=== PATIENT | male | born 1980 | race African-American/Black ===

== ENCOUNTER 2017-05-19 22:02 | Emergency (ER) | payer BC ==
[~2017-05-19] VITALS: Ht 182.9 cm; Wt 81.5 kg
[~2017-05-19 22:02] MED LIST: FLEC100T2 PO; FLO0.4C PO; HYDR-565 PO; ONDA4TAB59 PO
[2017-05-19 23:21] VITALS: BP 135/95
== END 2017-05-19 23:23 | disposition home or self-care (01) ==
LOC: ER 22:03
DX: S86.011A Strain of right Achilles tendon, initial encounter (principal); I48.91 Unspecified atrial fibrillation; I10 Essential (primary) hypertension; Z87.442 Personal history of urinary calculi; Z79.899 Other long term (current) drug therapy; X58.XXXA Exposure to other specified factors, initial encounter; Y93.61 Activity, american tackle football; Y92.89 Other specified places as the place of occurrence of the external cause; Y99.8 Other external cause status
CPT/HCPCS: 99281

== ENCOUNTER 2019-02-07 03:15 | Emergency (ER) | payer BC, OTHER ==
[~2019-02-07] VITALS: Ht 185.4 cm; Wt 95.5 kg
[~2019-02-07 03:15] MED LIST changes: +HYDR-4353 PO; -HYDR-565 PO
[2019-02-07 03:49] LABS: BASOPHILS # (AUTO) 0.1 X10'3 (0-0.2); BASOPHILS % (AUTO) 0.8 % (0-1); EOSINOPHILS # (AUTO) 0.1 X10'3 (0-0.9); HEMATOCRIT 39.2 % (42.0-52.0); HEMOGLOBIN 13.2 g/dl (14.0-17.9); LYMPHOCYTES # (AUTO) 2.4 X10'3 (1.1-4.8); LYMPHOCYTES % (AUTO) 40.3 % (21-51); MEAN CORPUSCULAR HGB CONC 33.6 g/dL (33.0-36.5); MEAN CORPUSCULAR VOLUME 86.3 FL (78-98); MEAN PLATELET VOLUME 8.3 FL (7.4-10.4); MONOCYTES # (AUTO) 0.7 X10'3 (0-0.9); MONOCYTES % (AUTO) 11.7 % (2-12); NEUTROPHILS # (AUTO) 2.8 X10'3 (1.8-7.7); NEUTROPHILS % (AUTO) 46.2 % (42-75); PLATELET COUNT 154 X10'3 (140-440); RED BLOOD COUNT 4.54 X10'6 (4.70-6.10); RED CELL DISTRIBUTION WIDTH 15.2 % (11.5-14.5); WHITE BLOOD COUNT 6.1 X10'3 (4.5-11.0)
[2019-02-07 03:59] LABS: ALANINE AMINOTRANSFERASE 12 U/L (12-78); ALBUMIN 3.3 G/DL (3.4-5.0); ALBUMIN/GLOBULIN RATIO 1.1 (1.1-1.5); ALKALINE PHOSPHATASE 92 IU/L (46-116); ANION GAP 8 (8-16); ASPARTATE AMINO TRANSFERASE 16 U/L (10-37); BILIRUBIN,TOTAL 0.2 MG/DL (0.1-1.0); BLOOD UREA NITROGEN 13 MG/DL (7-18); BUN/CREATININE RATIO 12.3 (5.4-32.0); CALCIUM 8.6 MG/DL (8.5-10.1); CHLORIDE 106 MMOL/L (99-107); CREATININE 1.06 MG/DL (0.60-1.10); GLUCOSE 89 MG/DL (70-104); POTASSIUM 3.8 MMOL/L (3.5-5.1); SODIUM 142 MMOL/L (135-145); TOTAL CARBON DIOXIDE 28.3 MMOL/L (24-32); TOTAL PROTEIN 6.3 G/DL (6.4-8.2); eGFR > 90 ML/MIN
[2019-02-07] MEDS ORDERED: aspirin 81mg tab.chew PO ONE (04:10)
[2019-02-07 04:24] VITALS: BP 145/84
== END 2019-02-07 04:26 | disposition home or self-care (01) ==
LOC: ER 03:15
DX: R07.89 Other chest pain (principal); I48.91 Unspecified atrial fibrillation; I10 Essential (primary) hypertension; Z79.899 Other long term (current) drug therapy
CPT/HCPCS: 36415; 71045; 80053; 84484; 85025; 93005; 99284

== ENCOUNTER 2019-11-24 22:35 | Emergency (ER) | payer OTHER ==
[~2019-11-24] VITALS: Ht 182.9 cm; Wt 79.5 kg
[2019-11-24 23:12] LABS: BASOPHILS % (AUTO) 0.7 % (0-1); EOSINOPHILS # (AUTO) 0.1 X10'3 (0-0.9); HEMATOCRIT 38.4 % (42.0-52.0); HEMOGLOBIN 12.6 g/dl (14.0-17.9); LYMPHOCYTES # (AUTO) 2.3 X10'3 (1.1-4.8); LYMPHOCYTES % (AUTO) 44.5 % (21-51); MEAN CORPUSCULAR HEMOGLOBIN 28.4 PG (27.0-31.0); MEAN CORPUSCULAR HGB CONC 32.8 g/dL (33.0-36.5); MEAN CORPUSCULAR VOLUME 86.4 FL (78-98); MEAN PLATELET VOLUME 8.3 FL (7.4-10.4); MONOCYTES # (AUTO) 0.4 X10'3 (0-0.9); MONOCYTES % (AUTO) 8.2 % (2-12); NEUTROPHILS # (AUTO) 2.4 X10'3 (1.8-7.7); NEUTROPHILS % (AUTO) 45.6 % (42-75); PLATELET COUNT 167 X10'3 (140-440); RED BLOOD COUNT 4.44 X10'6 (4.70-6.10); RED CELL DISTRIBUTION WIDTH 16.1 % (11.5-14.5); WHITE BLOOD COUNT 5.3 X10'3 (4.5-11.0)
[2019-11-24 23:20] LABS: ALANINE AMINOTRANSFERASE 21 U/L (12-78); ALBUMIN 3.8 G/DL (3.4-5.0); ALBUMIN/GLOBULIN RATIO 1.3 (1.1-1.5); ALKALINE PHOSPHATASE 78 IU/L (46-116); ANION GAP 4 (8-16); ASPARTATE AMINO TRANSFERASE 15 U/L (10-37); BILIRUBIN,TOTAL 0.2 MG/DL (0.1-1.0); BLOOD UREA NITROGEN 13 MG/DL (7-18); BUN/CREATININE RATIO 10.9 (5.4-32.0); CALCIUM 8.8 MG/DL (8.5-10.1); CHLORIDE 105 MMOL/L (99-107); CREATININE 1.19 MG/DL (0.60-1.10); GLUCOSE 90 MG/DL (70-104); POTASSIUM 3.6 MMOL/L (3.5-5.1); SODIUM 140 MMOL/L (135-145); TOTAL CARBON DIOXIDE 30.8 MMOL/L (24-32); TOTAL PROTEIN 6.7 G/DL (6.4-8.2); eGFR 82 ML/MIN
[2019-11-24 23:52] VITALS: BP 136/88
== END 2019-11-24 23:55 | disposition home or self-care (01) ==
LOC: ER 22:36
DX: R06.02 Shortness of breath (principal); R07.89 Other chest pain; I48.91 Unspecified atrial fibrillation; I10 Essential (primary) hypertension; F12.90 Cannabis use, unspecified, uncomplicated; Z87.442 Personal history of urinary calculi; Z87.891 Personal history of nicotine dependence; Z79.899 Other long term (current) drug therapy
CPT/HCPCS: 36415; 71045; 80053; 83880; 84484; 85025; 93005; 99285

== ENCOUNTER 2020-10-04 22:25 | Emergency (ER) | payer OTHER ==
[~2020-10-04] VITALS: Ht 182.9 cm; Wt 77.1 kg
[2020-10-04 22:36] VITALS: BP 134/79
== END 2020-10-04 23:14 | disposition left against medical advice (07) ==
LOC: ER 22:26
DX: R33.9 Retention of urine, unspecified (principal); Z53.21 Procedure and treatment not carried out due to patient leaving prior to being seen by health care provider; K59.00 Constipation, unspecified
CPT/HCPCS: 93005

== ENCOUNTER 2020-10-07 23:39 | Emergency (ER) | payer OTHER ==
[~2020-10-07] VITALS: Ht 182.9 cm; Wt 77.2 kg
[2020-10-08 00:27] LABS: BASOPHILS # (AUTO) 0.1 X10'3 (0-0.2); BASOPHILS % (AUTO) 1.2 % (0-1); EOSINOPHILS # (AUTO) 0.1 X10'3 (0-0.9); HEMATOCRIT 38.2 % (42.0-52.0); HEMOGLOBIN 12.9 g/dl (14.0-17.9); LYMPHOCYTES # (AUTO) 2.6 X10'3 (1.1-4.8); LYMPHOCYTES % (AUTO) 43.7 % (21-51); MEAN CORPUSCULAR HEMOGLOBIN 28.8 PG (27.0-31.0); MEAN CORPUSCULAR HGB CONC 33.7 g/dL (33.0-36.5); MEAN CORPUSCULAR VOLUME 85.6 FL (78-98); MEAN PLATELET VOLUME 8.6 FL (7.4-10.4); MONOCYTES # (AUTO) 0.7 X10'3 (0-0.9); NEUTROPHILS # (AUTO) 2.6 X10'3 (1.8-7.7); NEUTROPHILS % (AUTO) 43.1 % (42-75); PLATELET COUNT 173 X10'3 (140-440); RED BLOOD COUNT 4.46 X10'6 (4.70-6.10); RED CELL DISTRIBUTION WIDTH 16.1 % (11.5-14.5)
[2020-10-08 01:00] LABS: ALANINE AMINOTRANSFERASE 19 U/L (12-78); ALBUMIN 3.6 G/DL (3.4-5.0); ALBUMIN/GLOBULIN RATIO 1.2 (1.1-1.5); ALKALINE PHOSPHATASE 85 IU/L (46-116); ANION GAP 9 (8-16); ASPARTATE AMINO TRANSFERASE 13 U/L (10-37); BILIRUBIN,TOTAL 0.2 MG/DL (0.1-1.0); BLOOD UREA NITROGEN 16 MG/DL (7-18); BUN/CREATININE RATIO 10.7 (5.4-32.0); CALCIUM 8.5 MG/DL (8.5-10.1); CHLORIDE 106 MMOL/L (99-107); CREATININE 1.49 MG/DL (0.60-1.10); GLUCOSE 104 MG/DL (70-104); LIPASE 59 U/L (73-393); POTASSIUM 3.7 MMOL/L (3.5-5.1); SODIUM 143 MMOL/L (135-145); TOTAL CARBON DIOXIDE 28.2 MMOL/L (24-32); TOTAL PROTEIN 6.5 G/DL (6.4-8.2); eGFR 63 ML/MIN
[2020-10-08 01:21] LABS: CLARITY,URINE CLEAR (Clear); COLOR,URINE YELLOW (Yellow); GLUCOSE, URINE NEGATIVE (Neg); KETONES,URINE NEGATIVE (Neg); LEUKOCYTE ESTERASE ,URINE NEGATIVE (Neg); NITRITES, URINE NEGATIVE (Neg); OCCULT BLOOD,URINE NEGATIVE (Neg); PH,URINE 5.5 (4.8-8.0); PROTEIN,URINE NEGATIVE (Neg); UROBILINOGEN,URINE 0.2 E.U/dL (0.2-1.0)
[2020-10-08 01:24] LABS: UA COLLECTION TYPE CLN CATCH MIDSTREAM
--- NOTE | 2020-10-08 02:09 | NUR ---
Dulcolax, fiber pills, magnesium citrate (last ) and enema (10/07) tried at home.
[2020-10-08 02:11] VITALS: BP 143/85
[2020-10-08] MEDS ORDERED: polyethylene glycol 3350 17gm powd pack PO SCH (03:00)
[2020-10-08] MEDS ORDERED: polyethylene glycol 3350 17gm powd pack PO ONE (03:00)
== END 2020-10-08 03:08 | disposition home or self-care (01) ==
LOC: ER 23:40
DX: K59.00 Constipation, unspecified (principal); I10 Essential (primary) hypertension; F17.210 Nicotine dependence, cigarettes, uncomplicated
CPT/HCPCS: 36415; 74022; 80053; 81003; 83690; 85025; 99284

== ENCOUNTER 2022-08-07 04:51 | Emergency (ER) | payer MEDICAID ==
[~2022-08-07] VITALS: Ht 185.4 cm; Wt 70.0 kg
[2022-08-07 04:54] VITALS: BP 181/118
[2022-08-07] MEDS ORDERED: ibuprofen tablet 400 MG TABLET PO ONE (05:20)
[2022-08-07] MEDS ORDERED: acetaminophen 325mg tablet PO ONE (05:20)
[2022-08-07] MEDS ORDERED: HYDR-3965 PO (05:21)
--- NOTE | 2022-08-07 05:42 | NUR ---
PT EDUCATION GIVEN ON SWELLING AND JOINT CARE.
== END 2022-08-07 05:43 | disposition home or self-care (01) ==
LOC: ER 04:52
DX: M79.642 Pain in left hand (principal); R22.32 Localized swelling, mass and lump, left upper limb; I10 Essential (primary) hypertension
CPT/HCPCS: 73130; 99283; A6449

== ENCOUNTER 2022-10-21 11:22 | Emergency (ER) | payer MEDICAID, OTHER ==
[~2022-10-21] VITALS: Ht 180.3 cm; Wt 84.1 kg
[2022-10-21 11:30] VITALS: TEMP 98.1
[2022-10-21 13:54] VITALS: BP 167/107; PULSE 61; RESP 14; O2SAT 99
[2022-10-21] MEDS ORDERED: DOXYCYCLINE 100MG CAPSULE PO STA (14:35)
[2022-10-21] MEDS ORDERED: CEPH250T PO (14:35)
[2022-10-21] MEDS ORDERED: DOXY-356 PO (14:35)
== END 2022-10-21 15:19 | disposition home or self-care (01) ==
LOC: ER 11:22
DX: L02.412 Cutaneous abscess of left axilla (principal); I48.91 Unspecified atrial fibrillation; I10 Essential (primary) hypertension; Z87.442 Personal history of urinary calculi; Z72.89 Other problems related to lifestyle; Z79.2 Long term (current) use of antibiotics
CPT/HCPCS: 10060; 99283; A6449

== ENCOUNTER 2023-09-25 18:02 | Emergency (ER) | payer SELFPAY ==
[~2023-09-25] VITALS: Ht 180.3 cm; Wt 93.6 kg
[2023-09-25] MEDS: amLODIPine 5mg tablet PO ONE (18:51)
[2023-09-25] MEDS ORDERED: AMLO5TAB16 PO (20:05)
[2023-09-25] MEDS ORDERED: LISI20TA28 PO (20:05)
[2023-09-25] MEDS: ibuprofen tablet 400 MG TABLET PO ONE (20:18)
[2023-09-25] MEDS: acetaminophen 325mg tablet PO ONE (20:19)
[2023-09-25 20:21] VITALS: BP 178/102; PULSE 78; RESP 14; TEMP 98.6; O2SAT 99
== END 2023-09-25 20:23 | disposition home or self-care (01) ==
LOC: ER 18:03
DX: I10 Essential (primary) hypertension (principal); I48.91 Unspecified atrial fibrillation; Z87.442 Personal history of urinary calculi; Z72.89 Other problems related to lifestyle
CPT/HCPCS: 93005; 99284

== ENCOUNTER 2024-10-24 14:44 | Emergency (ER) | payer SELFPAY ==
[~2024-10-24] VITALS: Ht 180.3 cm; Wt 103.8 kg
[~2024-10-24 14:44] MED LIST changes: +AMLO5TAB16 PO; -FLEC100T2 PO; -FLO0.4C PO; -HYDR-4353 PO; -ONDA4TAB59 PO
[2024-10-24 15:09] VITALS: BP 147/92; PULSE 61; RESP 16; TEMP 98.3; O2SAT 98
[2024-10-24] MEDS ORDERED: AMOX-117 PO (15:20)
--- NOTE | 2024-10-24 15:27 | Physician Documentation ---
History of Present Illness ~ Chief Complaint: See Chief Complaint Stated Complaint: EAR PAIN OK to notify your PCP?: Yes Primary Medical Doctor: none Source: patient Mode of Arrival: POV Exam Limitations: no limitations HPI 44-year-old male with right-sided ear pain for the past week. He has not taken any pain medications prior to arrival. He denies having any muffled sounds on that side. He has also been having a lump on his right cheek for the past 2 years. No dental pain. Medication Reconciliation Allergies: Coded Allergies: No Known Allergies (Unverified , 10/24/24) Scheduled Amlodipine Besylate (Amlodipine Besylate), 1 TAB PO DAILY Amox Tr/Potassium Clavulanate (Augmentin 875-125 Tablet), 1 TAB PO Q12H Past Medical History Past Medical History: Atrial Fibrillation, Hypertension, Kidney Stones Past Surgical History: no surgical history Alcohol Use: Occasionally Drug Use: none Lives with: Family Lives In: Home Occupation: employed Review of Systems All Other Systems at this time: Reviewed and Negative Physical Exam Vital Signs: RN Vital Signs have been reviewed: Yes, Temperature: 98.3, Source: Temporal, Heart Rate: 61, Respiratory Rate: 16, BP: 147/92, Pulse Oximetry: 98, Weight: 103.800 Oxygen Flow Rate: 0 Pulse Oximetry Reflects: adequate oxygenation Physical Exam General: Alert, no distress. HEENT: No injection, moist mucous membranes. Left TM clear. Right TM has erythema, bulging and is opaque. Right cheek mass is very soft to the touch and movable, approximately 3 cm x 3 cm circular. Neck: Full range of motion. No cervical lymphadenopathy Respiratory: No respiratory distress, equal chest rise and fall. Chest: No accessory muscle use. Cardiovascular: Regular rate and rhythm. Gastrointestinal: Nondistended. Extremities: Normal range of motion, no deformity. Neurologic: Oriented x4. Psychiatric: Normal mood and affect. Skin: Normal color, warm and dry. Progress Results/Orders Reviewed/noted all lab results: Yes Results/Orders Vital Signs 10/24/24 15:09 Temp 98.3 Pulse 61 Resp 16 B/P (MAP) 147/92 Pulse Ox 98 O2 Flow Rate 0 Medical Decision Making Additional info obtained from: old records Findings 44-year-old male with acute otitis media to the right ear based on physical exam and history. Vital signs are stable. His blood pressure is little elevated but he does have a history of hypertension and takes medication for. The lump to his right jaw is not painful and he has had it for the past 2 years. On physical exam is it feels like a lipoma. 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 I prescribed Augmentin to his pharmacy 1st dose given here. Also gave Tylenol and ibuprofen here for the ear pain. Ear Diff. Dx: Considerations: Include: Abrasion, Cerumen impaction, Foreign body, Otitis externa, Barotrauma, Tympanic Membrane Injury Departure Disposition: HOME / SELF CARE / HOMELESS Impression: Primary Impression: Otitis media of right ear Condition: Stable Discharge Instructions: Otitis Media, Adult, [id number] Additional Instructions: Please take all antibiotics as prescribed. Return back here for any new or worsening symptoms. Follow up with her primary care provider within the week. Referrals: NO PRIMARY CARE PROVIDER (PCP) Prescriptions Amox Tr/Potassium Clavulanate (Augmentin 875-125 Tablet) 1 Each Tablet 1 TAB PO Q12H for 10 Days, #20 TAB Prov: DANELLE MCDUFFIE 10/24/24 Education Educated: Patient Educated regarding: diagnosis, treatment, prognosis, need for follow up Additional Comment Medical Screen Exam This patient recieved a medical screening examination. After reviewing the individual's medical complaints with presenting symptoms and performing an appropriate physical examination, it was determined that no immediate life- threatening emergency medical condition is present. This individual is also not a women having contractions. Signature Scribe Signature: . Attestation: Scribed for Emergency,Department by Danelle Prieto NP . 10/24/24 15:30 Parts of this note were created using [employer] voice recognition software program. While efforts were made to correct any mistakes made by this voice recognition software program, nonsensical phrases may remain in this note. In addition, there may be errors and syntax, grammar, content and spelling. DANELLE MCDUFFIE Oct 24, 2024 15:27
[2024-10-24] MEDS: ibuprofen tablet 400 MG TABLET PO ONE (16:28)
[2024-10-24] MEDS: amox tr/potassium clavulanate 875/125mg TAB PO ONE (16:28)
== END 2024-10-24 16:33 | disposition home or self-care (01) ==
LOC: ER 14:44
DX: H66.91 Otitis media, unspecified, right ear (principal); I10 Essential (primary) hypertension; I48.91 Unspecified atrial fibrillation
CPT/HCPCS: 99284

== ENCOUNTER 2024-12-11 21:44 | Emergency (ER) | payer MEDICAID ==
[~2024-12-11] VITALS: Ht 180.3 cm; Wt 94.3 kg
[2024-12-11 21:49] VITALS: TEMP 98
[2024-12-11] MEDS ORDERED: FAMO20TA47 PO (22:59)
[2024-12-11] MEDS ORDERED: ONDA-243 PO (22:59)
[2024-12-11] MEDS ORDERED: HYDR-3686 PO (22:59)
--- NOTE | 2024-12-11 22:59 | Physician Documentation ---
History of Present Illness ~ General Chief Complaint: Multiple Medical Complaints Stated Complaint: WITHDRAWLS/ HIGH BP Time Seen by MD: 22:28 Primary Medical Doctor: none Source: patient Mode of Arrival: POV Exam Limitations: no limitations History of Present Illness Initial Comments 44-year-old male who has history of addiction and anxiety lost his job in February and previously stopped drinking smoking weed or tobacco. But started back up after losing his job in February 2024. Patient was smoking 6 blunts per day and having 2-3 shots of hard alcohol per day. Patient claims that he has lost 30 lb in 2 weeks since he has stopped smoking and drinking. Patient states that he suffers from anxiety which includes hot flashes at night as well as a panic sensation. Patient also has had reduced appetite with mild nausea without vomiting over the past 2-3 weeks after stopping. No other acute concerns. Patient does have history of hypertension and does take a baby aspirin and hypertension medications daily. Medication Reconciliation Allergies: Coded Allergies: No Known Allergies (Unverified , 10/24/24) Scheduled Amlodipine Besylate (Amlodipine Besylate), 1 TAB PO DAILY Past Medical History Past Medical History: Atrial Fibrillation, Hypertension, Kidney Stones Past Surgical History: no surgical history Alcohol Use: Occasionally Drug Use: none Lives with: Family Lives In: Home Occupation: employed Review of Systems All Other Systems at this time: Reviewed and Negative Constitutional: Reports: see HPI Gastrointestinal: Reports: see HPI Physical Exam Physical Exam Vital Signs: RN Vital Signs have been reviewed: Yes, Temperature: 98.0, Heart Rate: 113, Respiratory Rate: 14, BP: 156/104, Pulse Oximetry: 100, Weight: 94.300 Oxygen Flow Rate: 0 Physical Exam General: Alert, no apparent distress. HEENT: PERRL, EOMI, no injection, moist mucous membranes. Neck: Full range of motion. Respiratory: Lungs clear, no respiratory distress. Chest: No accessory muscle use. Cardiovascular: Regular rate and rhythm, no murmurs. Gastrointestinal: Abdomen is soft normal bowel sounds nontender Extremities: Normal range of motion, no deformity. Neurologic: Oriented x4. Psychiatric: Normal mood and affect. Skin: Normal color, warm and dry. No edema, no ecchymosis. Progress Results/Orders Results/Orders Orders - CHEYANNE RICHARDSON NP Cbc/Diff (12/11/24 22:36) BMP (12/11/24 22:36) Vital Signs 12/11/24 12/11/24 21:49 22:30 Temp 98.0 Pulse 113 Resp 18 14 B/P (MAP) 156/104 Pulse Ox 100 O2 Flow Rate 0 Medical Decision Making Findings Potentially some anxiety due to job loss as well as the abrupt. Of tobacco and alcohol 2-3 weeks ago. Patient states he has lost 30 lb in 2-3 weeks with reduced appetite he has been working out twice a day without eating much. Patient does suffer from anxiety and takes medications for hypertension. Basic labs to evaluate for dehydration electrolyte abnormality we will prescribe patient Zofran and hydroxyzine to follow up primary care Departure Disposition: HOME / SELF CARE / HOMELESS Impression: Primary Impression: Nausea Additional Impression: Anxiety Condition: Stable Discharge Instructions: Generalized Anxiety Disorder, Adult, Managing Anxiety, Adult Additional Instructions: Dry eyes hydroxyzine as needed 3 times a day for anxiety and Zofran as needed for nausea. Follow up with [facility] or [facility] for resources on treating and evaluating or anxiety. It is important to eat and stay well hydrated especially when he work out. Monitor for any new or worsening symptoms and feel free to return to the ER. Referrals: NO PRIMARY CARE PROVIDER (PCP) Prescriptions Famotidine (Pepcid AC) 20 Mg Tablet 1 TAB PO DAILY for 30 Days, #30 TAB 0 Refills Prov: CHEYANNE RICHARDSON NP 12/11/24 ONDANSETRON ODT 4mg tablet (ONDANSETRON ODT) 4 Mg Tab.rapdis 1 TABLET PO Q6H PRN for nausea/vomiting, #16 TABLET Prov: CHEYANNE RICHARDSON NP 12/11/24 Hydroxyzine Hcl* (Atarax*) 25 Mg Tablet 1 TAB PO Q8H for anxiety for 30 Days, #90 TAB Prov: CHEYANNE RICHARDSON NP 12/11/24 Education Educated: Patient Educated regarding: diagnosis, treatment, need for follow up Signature Scribe Signature: No scribe Attestation: The note accurately reflects work and decisions made by me.Cheyanne Richardson - RAIL [employer]ER 12/11/24 22:59 CHEYANNE RICHARDSON NP Dec 11, 2024 22:59
[2024-12-11 23:28] LABS: MEAN PLATELET VOLUME 8.3 FL (7.4-10.4); RED CELL DISTRIBUTION WIDTH 15.7 % (11.5-14.5)
[2024-12-11 23:30] VITALS: BP 148/98; PULSE 98; RESP 16; O2SAT 99
[2024-12-11 23:36] LABS: CREATININE 1.14 MG/DL (0.60-1.10); TOTAL CARBON DIOXIDE 30.2 MMOL/L (24-32); eCRCL 88 ML/MIN; eGFR 84 ML/MIN
== END 2024-12-12 00:04 | disposition home or self-care (01) ==
LOC: ER 21:45
DX: R11.0 Nausea (principal); F41.9 Anxiety disorder, unspecified; I10 Essential (primary) hypertension; I48.91 Unspecified atrial fibrillation; Z87.442 Personal history of urinary calculi; Z72.89 Other problems related to lifestyle; Z79.899 Other long term (current) drug therapy
CPT/HCPCS: 36415; 80048; 85025; 99283; Q0177